=== PATIENT | female | born 1950 | race Caucasian/White ===

== ENCOUNTER → 2016-12-13 | Outpatient (CLI) | payer OTHER ==
[~2016-12-13] MED LIST: LEVOTHYROXINE0.1 MG PO; PREMIUM DAILY M1 TAB PO
--- NOTE | 2016-12-13 11:41 | RADIOLOGY REPORT PS360 ---
EXAM: CERVICAL SPINE 4 OR 5 VIEWS HISTORY: NECK PAIN RADICULAR PAIN DOWN LEFT ARM ORDERING PHYSICIAN: Elias Cevallos MD PATIENT AGE: 66 years COMPARISON: None FINDINGS: There is straightening of the cervical lordosis which may be due to patient positioning or muscle spasm. Multilevel degenerative disc disease is present from C2 to T1 with decrease in the disc spaces and endplate osteophyte formation. There is mild foraminal narrowing on the right at C4-5 and C5-6 and on the left at C3-C4 and C5-C6. Facet arthritic changes are present from C3 to C7. No fracture or dislocation. No lytic or blastic change. IMPRESSION: Cervical spondylosis with degenerative disc disease and facet arthritic change with bilateral foraminal narrowing as described above
== END ==
LOC: RAD 10:50
DX: M54.2 Cervicalgia (principal); M54.10 Radiculopathy, site unspecified

== ENCOUNTER → 2016-12-23 | Outpatient (CLI) | payer OTHER ==
--- NOTE | 2016-12-23 14:43 | RADIOLOGY REPORT PS360 ---
SPECT MYOCARDIAL PERFUSION SCAN, REST AND STRESS: EXERCISE STRESS: [facility] [place] REVIEW QGS EF AND WALL MOTION EVALUATION: QPS - PERFUSION EVALUATION: HISTORY: Syncope, Tobacco use PROCEDURE: Rest imaging performed after administration of10.31 millicuries Tc MIBI. Dose administered at6:20 a.m., with imaging thereafter. Stress imaging was then performed following7 minutes of exercise stress. The patient achieved a heart cbid064 with projected heart rate of132 . Resting BP141/76 with stress 220/85. At maximum exercise stress,31.3 millicuries Tc MIBI administered at7:50 a.m. with [id number] minutes thereafter. EKG revealed 1 to 1.[address] segment depression making the EKG portion of this test abnormal. FINDINGS: Perfusion Evaluation: The single slice spect images as well as the [facility] bull's-eye data summary were reviewed. Wall Motion and Ejection Fraction Evaluation: Gated SPECT review and analysis used to evaluate these features. There is a 72 % left ventricular ejection fraction. There seems to be good wall motion Stress images reveal severely decreased activity in the anterior apical and inferoseptal wall. Rest images reveal improved uptake in all areas. Gated images calculated ejection fraction of 72% with normal wall motion IMPRESSION: This is a high risk abnormal stress test suggesting anterior apical and inferoseptal ischemia. Normal ejection fraction normal wall motion
--- NOTE | 2016-12-23 14:43 | RADIOLOGY REPORT PS360 ---
SPECT MYOCARDIAL PERFUSION SCAN, REST AND STRESS: EXERCISE STRESS: [facility] REVIEW QGS EF AND WALL MOTION EVALUATION: QPS - PERFUSION EVALUATION: HISTORY: Syncope, Tobacco use PROCEDURE: Rest imaging performed after administration of10.31 millicuries Tc MIBI. Dose administered at6:20 a.m., with imaging thereafter. Stress imaging was then performed following7 minutes of exercise stress. The patient achieved a heart [id number] with projected heart rate of132 . Resting BP141/76 with stress 220/85. At maximum exercise stress,31.3 millicuries Tc MIBI administered at7:50 a.m. with [id number] minutes thereafter. EKG revealed 1 to 1.[address] segment depression making the EKG portion of this test abnormal. FINDINGS: Perfusion Evaluation: The single slice spect images as well as the [facility] bull's-eye data summary were reviewed. Wall Motion and Ejection Fraction Evaluation: Gated SPECT review and analysis used to evaluate these features. There is a 72 % left ventricular ejection fraction. There seems to be good wall motion Stress images reveal severely decreased activity in the anterior apical and inferoseptal wall. Rest images reveal improved uptake in all areas. Gated images calculated ejection fraction of 72% with normal wall motion IMPRESSION: This is a high risk abnormal stress test suggesting anterior apical and inferoseptal ischemia. Normal ejection fraction normal wall motion
--- NOTE | 2016-12-23 21:33 | RADIOLOGY REPORT PS360 ---
PROCEDURE: 2-D M-mode and color Doppler study INDICATIONS FOR THE TEST: Chest pain COPD Heart Murmur Tobacco Smoking Palpitations Fatigue SyncopeX Edema Hypertension Diabetes Mellitus Rheumatic Fever SOB DOEXObesityXHyperlipidemia Family History HD Additional History PATIENT INFORMATION HEIGHT: 65 WEIGHT:200 GENDER: Female B/P:141/76 2-D/M-MODE INTERPRETATION: 2-D MEASUREMENTS OBSERVED VALUES IN CMS Right Ventricular Dimension (RVDd) 2.2 Interventricular Septum (Thickness)(IVsd) 1.0 Left Ventricular Internal Dimensions(LVIDd) 3.8 Left Ventricular Posterior Wall (Thickness)(LVPWd) .9 Aortic Root 3.0 Aortic Cusp Separation 1.2 Left Atrial Dimensions (LAD) 3.3 2D 1. Left atrium is normal size, left ventricle is normal size, there is no concentric left ventricular hypertrophy, visually estimated ejection fraction 55%, there is no obvious regional wall motion abnormality. Endocardial surfaces are somewhat poorly visualized. 2. Right atrium is normal size, right ventricle is mildly enlarged with normal contractility. 3. The aortic valve is minimally thickened and fibrosed. 4. The mitral and tricuspid valve are grossly normal. 5. The pulmonic valve is poorly visualized. 6. No significant pericardial effusion noted DOPPLER INTERROGATION: Doppler interrogation of the aortic, mitral and tricuspid valvular presence of mild mitral and tricuspid regurgitation, tricuspid and jet velocity insufficient for calculation of the right ventricular systolic pressure, diastolic parameters are inconclusive. CONCLUSION: 1. Technically difficult study because of the patient's factor and poor acoustic windows, 2. Normal left ventricular size, preserved left ventricular systolic function, visually estimated ejection fraction 55% with no obvious regional wall motion abnormality, diastolic parameters are inconclusive. 3. Mildly enlarged right ventricle with normal contractility. 4. Mild mitral and tricuspid regurgitation. 5. No significant pericardial effusion noted.
== END ==
LOC: RAD 06:00
DX: G45.9 Transient cerebral ischemic attack, unspecified (principal); R55 Syncope and collapse